=== PATIENT | male | born 1990 | race African-American/Black ===

== ENCOUNTER 2018-08-24 16:58 | Emergency (ER) | payer SELFPAY ==
[2018-08-24] MEDS: SOD CHLORIDE 0.9% 250 ML IV (18:30)
[2018-08-24] MEDS: morphine 2 MG INJ IV (18:30)
[2018-08-24] MEDS: CEFTRIAXONE 1 GM/50 ML (PMX) 50 ML IVPB (18:30)
[2018-08-24] MEDS: LIDOCAINE 1% (MDV) 20 ML INJ SC (18:31)
[2018-08-24] MEDS: DEXAMETHASONE 10 MG/ML 1 ML INJ IV (18:59)
[2018-08-24 20:10] LABS: ADD MAN DIFF? NO
[2018-08-24 20:14] LABS: BASOPHIL # 0.1 10^3/ul (0.0-0.1); BASOPHILS % 0.5 % (0.0-2.0); EOSINOPHILS # 0.3 10^3/ul (0.0-0.5); EOSINOPHILS % 2.6 % (0.0-7.0); HEMOGLOBIN 14.8 g/dl (14.0-18.0); LYMPHOCYTES # 1.6 10^3/ul (0.8-2.9); LYMPHOCYTES % 12.2 % (15.0-51.0); MEAN CORPUSCULAR HEMOGLOBIN 29.8 pg (29.0-33.0); MEAN CORPUSCULAR HGB CONC 34.4 g/dl (32.0-37.0); MEAN CORPUSCULAR VOLUME 86.7 fl (82.0-101.0); MEAN PLATELET VOLUME 9.7 fl (7.4-10.4); NEUTROPHIL # 9.9 10^3/ul (1.6-7.5); NEUTROPHILS % 76.2 % (39.0-77.0); PLATELET COUNT 348 10^3/UL (140-415); RED BLOOD COUNT 4.96 10^6/ul (4.70-6.10)
[2018-08-24 20:36] LABS: ANION GAP 11 (5-13); BLOOD UREA NITROGEN 14 mg/dl (7-20); CALCIUM 9.5 mg/dl (8.4-10.2); CARBON DIOXIDE 26 mmol/L (21-31); CHLORIDE 104 mmol/L (97-110); CREATININE 1.02 mg/dl (0.61-1.24); Estimated GFR > 60 mL/min (>60); GLUCOSE 103 mg/dl (70-220); SODIUM 141 mmol/L (135-144)
[2018-08-24] MEDS: IOHEXOL 300MG/ML 150 ML BTL (20:58)
[2018-08-24] MEDS: SOD CHLORIDE 0.9% 100 ML (20:58)
[2018-08-24] MEDS: KETOROLAC 15 MG INJ IV (22:14)
== END 2018-08-24 22:27 | disposition home or self-care (01) ==
LOC: FTE 22:27
DX: J36 Peritonsillar abscess (principal)
CPT/HCPCS: 36415; 70491; 80048; 85025; 96365; 96375; 99285-25